=== PATIENT | male | born 1960 | race Caucasian/White ===

== ENCOUNTER 2019-04-22 20:46 | Emergency (ER) | payer SELFPAY ==
--- NOTE | 2019-04-22 21:38 | RAD ---
3 views right ankle: 04/22/2019 COMPARISON: 02/27/2017 HISTORY: Pain FINDINGS: Old fractures of the distal right tibia and fibula present. Incompletely imaged intramedull miracle cathi noted within the right tibial shaft. There is soft tissue swelling on the lateral examination anterior to the distal right tibia. Frontal imaging demonstrates probable soft tissue swe lling medial to the distal right tibia. The talar dome and ankle mortise appear intact. No displaced fracture or dislocation is seen. IMPRESSION: Soft tissue swelling. No acute fracture or dislocation.
[2019-04-22 21:56] LABS: Hemoglobin 15.4 g/dL (14.0-18.0); Mean Corpuscular Volume 92.1 fL (78.0-98.0); Red Blood Cell (RBC) Count 5.15 mill/uL (4.70-6.10); White Blood Cell (WBC) Count 9.2 thou/uL (4.8-10.8)
[2019-04-22 21:57] LABS: %Basophils 1.3 % (0.0-1.0); %Eosinophils 5.2 % (0.0-10.0); %Lymphocytes 38.6 % (21.0-51.0); %Monocytes 8.5 % (0.0-10.0); %Neutrophils 46.3 % (42.0-75.0); Mean Corpuscular HGB CONC 32.5 g/dL (32.0-36.0); Mean Platelet Volume 7.8 fL (7.4-10.4); Platelet Count 330 thou/uL (130-400)
[2019-04-22 21:58] LABS: #Basophils 0.1 thou/uL (0.0-0.2); #Eosinphils 0.5 thou/uL (0.0-0.7); #Lymphocytes 3.5 thou/uL (1.20-3.40); #Monocytes 0.8 thou/uL (0.11-0.59); #Neutrophils 4.2 thou/uL (1.40-6.50)
[2019-04-22 22:01] LABS: ALT (SGPT) 28 U/L (8-55); AST (SGOT) 19 U/L (5-34); Albumin 3.9 g/dL (3.5-5.0); Alkaline Phosphatase 113 U/L (40-110); Anion Gap 15 mmol/L (10-20); BUN (Urea Nitrogen) 13 mg/dL (8.4-25.7); Bilirubin, Total 0.4 mg/dL (0.2-1.2); Calc. Creatinine Clearance 0 mL/min (70-130); Calcium 9.1 mg/dL (7.8-10.44); Carbon Dioxide 27 mmol/L (22-29); Chloride 103 mmol/L (98-107); Estimated GFR-MDRD 86; Globulin 3.5 g/dL (2.4-3.5); Glucose 105 mg/dL (70-105); Potassium 4.4 mmol/L (3.5-5.1); Protein, Total 7.4 g/dL (6.0-8.3); Sodium 141 mmol/L (136-145)
--- NOTE | 2019-04-22 22:22 | RAD ---
FRONTAL AND LATERAL IMAGING OF THE RIGHT TIBIA/FIBULA: Date: 04-22-19 Comparison: None. History: Injury. FINDINGS: There is an intramedullary cathi within the right tibia treating an old distal tibial fracture. There i s an old distal right fibular fracture as well. A metallic density projects within the right knee sarwat nt anteriorly, adjacent to the medial femoral condyle, etiology uncertain. IMPRESSION: Intermedullary cathi within the right tibia. Old right tibial and fibular fractures. There is a metalli c structure within the right knee joint adjacent to the anterior aspect of the right medial femoral c ondyle, etiology uncertain. Follow up surgical consultation is best advised. POS: [facility]
[2019-04-22] MEDS ORDERED: HYDROcodone/Acetaminophen 5/325 mg Tablet ONE (22:46)
== END 2019-04-22 23:03 | disposition short-term general hospital (02) ==
LOC: BURERS 20:46
DX: M79.5 Residual foreign body in soft tissue (principal); F17.210 Nicotine dependence, cigarettes, uncomplicated
CPT/HCPCS: 80053; 85025; 85379